=== PATIENT | female | born 1980 ===

== ENCOUNTER 2016-08-02 06:29 | Day surgery (SDC) | payer BC ==
[2016-07-25 09:33] VITALS: BMI 25.9
[2016-08-02] MEDS ORDERED: Lactated Ringer's 1,000 ML IV ONE (11:40)
[2016-08-02] MEDS ORDERED: Propofol 10 mg/ml Inj (20 ML) ONE (11:46)
[2016-08-02] MEDS ORDERED: Midazolam 2 MG/2 ML VIAL ONE (11:46)
[2016-08-02] MEDS ORDERED: Silver Nitrate Topical - Stick ONE (12:22)
[2016-08-02] MEDS ORDERED: Oxytocin 10 Units/ml Inj ONE (12:24)
[2016-08-02] MEDS ORDERED: HYDROmorphone 0.5 mg/0.5 ml ISec IVP PRN (12:43)
[2016-08-02] MEDS ORDERED: Lactated Ringer's 1,000 ML IV SCH (12:45)
[2016-08-02] MEDS ORDERED: HYDROmorphone 0.5 mg/0.5 ml ISec ONE (12:54)
[2016-08-02 13:12] VITALS: O2SAT 100
--- NOTE | 2016-08-02 14:41 | PCM.SURG1 ---
Surgeon's Initial Post Op Note - Surgeon's Notes Surgeon: Serena James MD Wind Tunnel Mechanic: none Type of Anesthesia: General LMA Pre-Operative Diagnosis: Abnormal uterine bleeding, submcuosal myoma, pelvic pain Operative Findings: 8-10 week size anterveed uteruts, submucosal type myoma near lower uterine segment, bilateral ostia visulzed, multiparous cervix. novasure ablation 67 seconds, passed cavity assessment Post-Operative Diagnosis: same as above Operation Performed: Hysteroscopic myomectomy, fractional dilation and currettage, endometiral ablation via novasure Specimen/Specimens Removed: submucosal myoma, endocervical currettins, endometrial currettings Estimated Blood Loss: EBL {In ML}: 10 Blood Products Given: N/A Drains Used: No Drains Post-Op Condition: Good Date of Surgery/Procedure: 08/02/16 Time of Surgery/Procedure: 11:00
[2016-08-02 16:33] VITALS: RESP 16; TEMP 97.7
[2016-08-02 16:36] VITALS: BP 105/56; PULSE 71
--- NOTE | 2016-08-05 09:44 | OP ---
PROCEDURE DATE: 08/02/2016 SURGEON: Dr. Serena James INFORMATION BROKER: None. TYPE OF ANESTHESIA: General LMA. PREOPERATIVE DIAGNOSES: Abnormal uterine bleeding, submucosal myoma, pelvic pain. POSTOPERATIVE DIAGNOSES: Abnormal uterine bleeding, submucosal myoma, pelvic pain. OPERATIVE FINDINGS: 8-10 week size anteverted uterus, submucosal myoma type near lower uterine segme nt, bilateral ostia visualized, multiparous cervix. NovaSure ablation 67 seconds, passed cavity asses sment. OPERATION PERFORMED: Hysteroscopic myomectomy, fractional dilation and curettage, endometrial ablati on via NovaSure. SPECIMEN: submucosal myoma, endocervical curettings, endometrial curettings. ESTIMATED BLOOD LOSS: 10 mL. BLOOD PRODUCTS: None. COMPLICATIONS: None. The patient was taken to the operating room where she was given anesthesia. Once general anesthesia was found to be adequate, ____ dorsal supine position with legs supported using stirrups. The patien t was then prepped and draped in usual sterile fashion. Timeout was performed ____ was performed wit h above-mentioned findings. Eubanks retractor was placed in the anterior, posterior fornix of the vagi na after a red rubber catheter was inserted into the urethra to drain the bladder. Cervix was adequa tely visualized ____ the cervix. Endocervical curettings were obtained with Jude curette, sent to pathology on [facility]. The uterus was then sounded to 8 cm and cervix was sequentially dilated to al low for introduction of the MyoSure device under direct visualization using normal saline as the dist ending media. Upon visualization, there was myoma noted within the cavity in lower uterine segment. Approximately ____ bilateral ostia were visualized. MyoSure device was then inserted ____ complicat ion. The MyoSure device was then removed and endometrial curettings were obtained with the curette _ ___ until a gritty texture noted and sent to pathology on [facility]. Following this ____ the cervical __ __ instrument. The NovaSure device was then inserted under ____ precautions and ____. The machine w as then activated and the cavity passed the assessment. The device was then activated and a total of 67 seconds ____ was then completed. Following this, the NovaSure device was then ____ hysteroscope was then reintroduced and there was good ablation noted throughout the cavity. All instruments were removed. The single tooth tenaculum removed and there good hemostasis noted at the tenaculum punctur e sites. All instruments were removed. At the end of the procedure, all needle, sponge and instrume nt counts were noted correct x 2. The patient tolerated the procedure well and was transferred to re covery room in stable condition. Serena James MD cc: [id number] TT: 08/02/2016 15:15:23 en 08/05/2016 08:43:00
--- NOTE | 2016-08-12 13:07 | OP ---
PROCEDURE DATE: 08/02/2016 SURGEON: Dr. Serena James CHECKOUT OPERATOR: None. TYPE OF ANESTHESIA: General LMA. PREOPERATIVE DIAGNOSIS: Abnormal uterine bleeding, submucosal myoma, pelvic pain. OPERATIVE FINDINGS: An 8-10 week size anteverted uterus, submucosal type myoma near lower uterine se gment, bilateral ostia visualized, multiparous cervix. NovaSure ablation cavity assessment. POSTOPERATIVE DIAGNOSIS: Abnormal uterine bleeding, submucosal myoma, pelvic pain. OPERATION PERFORMED: Hysteroscopic myomectomy, fractional dilation and curettage, endometrial ablati on via NovaSure. SPECIMEN REMOVED: Submucosal myoma, endocervical curettings, endometrial curettings. ESTIMATED BLOOD LOSS: 10 mL. BLOOD PRODUCTS: None. COMPLICATIONS: None. The patient was taken to the operating room where she was given general anesthesia. Once this was fo und to be adequate, she was positioned on the operating table in dorsal supine position with legs sup ported using stirrups. The patient was then prepped and draped in the normal sterile fashion. A carol ann eout confirmed correct patient and correct procedure. A bimanual exam was performed with above-menti oned findings. A red rubber catheter was then inserted into urethra to drain the bladder and 30 mL o f clear yellow urine were obtained. Following this, a Reyes retractor was placed in the anterior, pos terior fornix of the vagina. Cervix was adequately visualized. Single tooth tenaculum was placed on the anterior lip of the cervix. Endocervical curettings were obtained with a Kevadamian curette and sent to pathology on [facility]. The uterus was then sounded to 8 cm. Following this, the cervix was seq uentially dilated to allow for introduction of the MyoSure hysteroscopic device under direct visualiz ation using normal saline as the distending media. Bilateral ostia were visualized and there was a s oft submucosal type tissue noted close to the lower uterine segment. The MyoSure device was then ins erted and the myoma was then resected . Following this, a gentle curettage was done 360 degrees and then the NovaSure device was then inserted. The dimensions were then inserted after the uterine cavity length was obtained. The cavity had passed assessment. The NovaSure device was then activat ed and a completion time of 67 seconds was then performed. The device was then removed after being t racked within the catheter. Hysteroscope was then reinserted. There was good ablation noted through out the cavity. All instruments were removed. The single tooth tenaculum was removed. There was go od hemostasis at the tenaculum puncture site. At the end of the procedure, all needles, sponges and instruments correct x 2. The patient tolerated the procedure well and was transferred to [facility] room in stable condition. Serena James MD cc: [id number] TT: 08/12/2016 13:06:57 en
== END 2016-08-02 14:30 | disposition home or self-care (01) ==
LOC: MERGE 06:29 → C.SDS 06:29
PROVIDERS: ATTEND Obstetrics & Gynecology
DX: N93.9 Abnormal uterine and vaginal bleeding, unspecified (principal); D25.0 Submucous leiomyoma of uterus
CPT/HCPCS: 58561; 58563; 88305; J1170; J2250; J2704; J3010; J7120